=== PATIENT | female | born 1935 | race Caucasian/White ===

== ENCOUNTER 2017-11-22 08:50 | Day surgery (SDC) | payer MEDICARE, BC ==
[~2017-11-22] VITALS: Ht 157.5 cm; Wt 48.3 kg
[2017-11-22 09:25] VITALS: BP 119/47
[2017-11-22] MEDS ORDERED: normal saline 1000ml 1,000 ML IV PRN (09:25)
[2017-11-22 09:51] LABS: MEAN CORPUSCULAR HEMOGLOBIN 20.2 PG (27.0-31.0); MEAN CORPUSCULAR HGB CONC 29.3 % (33.0-36.5); MEAN PLATELET VOLUME 9.6 FL (7.4-10.4); PLATELET COUNT 366 X10'3 (140-440); RED CELL DISTRIBUTION WIDTH 22.2 % (11.5-14.5); WHITE BLOOD COUNT 4.9 X10'3 (4.5-11.0)
[2017-11-22] MEDS ORDERED: sodium chloride 0.45% 1,000 ML IV SCH (09:55)
[2017-11-22 10:12] LABS: HEMATOCRIT 13.8 % (35.0-45.0); HEMOGLOBIN 4.1 g/dl (12.0-16.0)
[2017-11-22 10:26] LABS: ANISOCYTOSIS 3+; MICROCYTOSIS 2+; NUCLEATED RED BLOOD CELLS 2 /100WBC (0-0); PLATELET ESTIMATE NORMAL; TOTAL CELLS COUNTED 100
[2017-11-22 10:32] LABS: HYPOCHROMASIA 2+
[2017-11-22 10:34] LABS: ROULEAUX 1+
[2017-11-22 10:35] LABS: ELLIPTOCYTES FEW
[2017-11-22 10:36] LABS: LARGE PLATELETS FEW
[2017-11-22 10:37] LABS: POLYCHROMASIA FEW; SCHISTOCYTES FEW
[2017-11-22 10:40] LABS: STOMATOCYTES 1+
[2017-11-22 10:41] LABS: GIANT PLATELET FEW
[2017-11-22] MEDS ORDERED: ALBU8.5H8 INH (11:40)
[2017-11-22] MEDS ORDERED: LEVO25TA2 PO (11:40)
[2017-11-22] MEDS ORDERED: ATR0.5NEB NEB (11:40)
[2017-11-22] MEDS ORDERED: METO50TA7 PO (11:40)
[2017-11-22] MEDS ORDERED: ASPI81TA52 PO (11:40)
[2017-11-22] MEDS ORDERED: ALB0.5UD IH (11:40)
[2017-11-22] MEDS ORDERED: LORA0.5T PO (11:40)
[2017-11-22] MEDS ORDERED: TRAM50TA2 PO (11:40)
[2017-11-22] MEDS ORDERED: CHOL500049 PO (11:40)
[2017-11-22] MEDS ORDERED: FLUT1DIS4 INH (11:40)
[2017-11-22] MEDS ORDERED: CYAN-19 PO (11:40)
[2017-11-22] MEDS ORDERED: HYDR12.5 PO (11:40)
[2017-11-22] MEDS ORDERED: UMEC62.5 INH (11:40)
[2017-11-22] MEDS ORDERED: ESTR-8 PO (11:40)
== END 2017-11-22 10:30 | disposition home or self-care (01) ==
LOC: SSTAY O 08:50
PROVIDERS: ATTEND Radiology Diagnostic Radiology
DX: R91.8 Other nonspecific abnormal finding of lung field (principal); Z53.8 Procedure and treatment not carried out for other reasons; J44.9 Chronic obstructive pulmonary disease, unspecified; I10 Essential (primary) hypertension; E03.9 Hypothyroidism, unspecified; F17.200 Nicotine dependence, unspecified, uncomplicated; Z88.0 Allergy status to penicillin; Z88.2 Allergy status to sulfonamides; Z91.041 Radiographic dye allergy status; Z79.01 Long term (current) use of anticoagulants; Z98.49 Cataract extraction status, unspecified eye
CPT/HCPCS: 36415; 85025; J7030